=== PATIENT | female | born 1945 | race Two or more races ===

== ENCOUNTER 2024-05-20 06:47 | Emergency (ER) | payer OTHER, SELFPAY ==
[2024-05-20 06:58] VITALS: BP 136/54; PULSE 70; RESP 18; TEMP 36.6; O2SAT 97; BMI 23.7
--- NOTE | 2024-05-20 07:19 | ED_ITS ---
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 Today she is here asking for blood work to see if she has infection though no fevers, swelling. She just had normal panorex at dentist yesterday. I explained blood work would not be helpful but will provide gabapentin and she should call her oral surgeon. She is to continue her cephalexin. MD Complaint: tooth pain Onset (ago): year(s) (4 attack started 5 days ago ) Duration: constant Severity: severe Relieving factors: nothing Exacerbating factors: chewing, cold, heat, drinking fluids and swallowing Context: trauma (mechanism) Associated symptoms: other (has no outward signs) Treatment prior to arrival: other (oxcarbezapine) Related Data Previous Rx's ?Medication ?Instructions ?Recorded gabapentin 100 mg capsule 100 mg PO TID #90 caps 05/20/24 Allergies Allergy/AdvReac Type Severity Reaction Status Date / Time No Known Allergies Allergy Verified 05/20/24 07:00 Review of Systems Review of Systems: Constitutional : No Fever, No Chills ENT/Mouth : No swallowing difficulty, no change in voice, positive dental pain, positive jaw pain, no facial swelling Eyes: No Eye Pain, No Swelling Cardiovascular : No Chest Pain, No SOB Respiratory : No Cough, No Sputum Gastrointestinal : No Nausea, No Vomiting, No Diarrhea Genitourinary : No Dysuria Musculoskeletal : No Myalgias Skin : No rash Neuro : No Weakness, No Numbness, No Headache PMFSH Past Medical History Attestation statement: The following information was validated with the patient. Source: old records reviewed Medical History Asthma UTI (urinary tract infection) Trigeminal neuralgia DVT (deep venous thrombosis) Social History Social History Patient Tobacco Use Status: Never used Tobacco Advance Directives: Yes Advance Directives Information Provided: Yes Advance Directives on File: No Physical Exam 2 Vital Signs: Vital Signs: Last Vital Signs Temp 97.9 F 05/20/24 06:58 Pulse 70 05/20/24 06:58 Resp 18 05/20/24 06:58 BP 136/54 L 05/20/24 06:58 Pulse Ox 97 05/20/24 06:58 O2 Del Method Room Air 05/20/24 06:58 BMI result Body Mass Index 23.7 Appearance: Alert. Oriented X3. No acute distress. Eyes: Pupils equal, round and reactive to light. ENT: Pharynx normal. no trismus did have pain but able to open then no issues was short sharp episode of pain, no signs of swelling, gum swelling, hyperemia, thinning of gum, mild ttp along R jaw no outward signs of swelling or trauma, no lymphadenopathy Neck: Normal inspection. Neck supple. no submandibular or sublingual swelling CVS: Pulses normal. Respiratory: No respiratory distress. . Abdomen: atraumatic Skin: Skin warm and dry. Normal skin color. Extremities: trace edema both ankles Neuro: Oriented X 3. No motor deficit. No sensory deficit. Medical Decision Making Medical Decision Making MDM Narrative: 79 yo female with PMH of DVT on xarelto, asthma, UTI currently on cephalexin, anxiety, chronic nerve pain on oxcarbazepine here with chronic R sided pain but no associated signs of infection or phyisical signs of infection at this time will start on gapapentin and refer her back to her dentist. She just had imaging of her bone yesterday without findings of infection. No signs of deeper space infection Differential Diagnosis Differential Diagnoses: The differential diagnosis associated with the presentation includes jaw pain, trigeminal neuralgia External Record Review External record reviewed: Outpatient record Prescription Management I considered prescription management with: Other Discharge Plan Discharge Clinical Impression: Right trigeminal neuralgia Patient Disposition: Home, Self-Care Instructions: Trigeminal Neuralgia (ED) Additional Instructions: call dentist today follow up for further imaging return for worsening pain or concerns such as fevers finish the antibiotic medication may make you sleepy Prescriptions: New gabapentin 100 mg capsule 100 mg PO TID Qty: 90 0RF Print Language: Bulgarian
[2024-05-20 07:56] VITALS: BP 130/82; PULSE 70; RESP 16; TEMP 36.6; O2SAT 96
== END 2024-05-20 07:58 | disposition home or self-care (01) ==
PROVIDERS: Absent Provider Internal Medicine; Emergency Provider Emergency Medicine
DX: G50.0 Trigeminal neuralgia (principal)
CPT/HCPCS: 99282; 99283

== ENCOUNTER 2025-04-23 07:03 | Emergency (ER) | payer OTHER, SELFPAY ==
--- NOTE | ~2025-04-23 | XR_ITS ---
CLINICAL HISTORY: bilateral pain radiating to legs 5 view, pelvis and bilateral hips Comparison: None provided Findings: The bony pelvis is intact. There are moderate degenerative changes at both hips. No fracture or malalignment. Impression: Moderate degenerative change at both hips. No fracture or malalignment. This document has been electronically signed by: Jacek Cannon MD on 04/23/2025 10:02:32
--- NOTE | ~2025-04-23 | US_ITS ---
CLINICAL HISTORY: bilat LE pain swelling L>R, hx dvt Bilateral lower extremity duplex venous Doppler Comparison: None Technique: Grayscale/Color/Duplex Doppler sonographic evaluation of the deep venous system within both lower extremities. Findings: Right lower extremity Common femoral vein: Patent CFV/GSV junction: Patent Femoral vein: Patent Popliteal vein: Patent Infrapopliteal veins: Patent where seen Soft tissue: No focal abnormality Left lower extremity Common femoral vein: Patent CFV/GSV junction: Patent Femoral vein: Patent Popliteal vein: Patent Infrapopliteal veins: Patent where seen Soft tissues: Popliteal cyst measuring 4.7 x 2.3 x 2.5 cm Impression: 1. Negative for bilateral lower extremity DVT 2. Left webb's cyst This document has been electronically signed by: Justin Ziegler MD on 04/23/2025 11:58:23
[2025-04-23 07:46] VITALS: BP 163/73; PULSE 84; RESP 16; TEMP 36.7; O2SAT 97; BMI 25.9
[2025-04-23 07:49] VITALS: BP 163/74; PULSE 83; RESP 16; O2SAT 97
--- OUTSIDE RECORDS SUMMARY | 2025-04-23 07:54 | XMS_ITS | Clinical Summary ---
Author Organization [facility] Address [address] [place] [address] Phone Care Team Providers Care Inside Sales Professional Name Role Phone Shay Tam MD Primary Care Provider [phone] Allergies Active Allergy Reactions Criticality Noted Date Comments Amoxicillin-Pot Clavulanate GI intolerance 12/04 Lactose 12/28/2024 Sulfadiazine Nausea And Vomiting 12/28/2024 Sulfamethoxazole-Trimethoprim Unknown 2024 Medications albuterol HFA (PROAIR HFA ; PROVENTIL HFA ; VENTOLIN HFA) 90 mcg/actuation inhaler Inhale 1 puff by mouth every 6 (six) hours if needed for wheezing. Active atorvastatin (LIPITOR) 80 mg tablet Take 1 tablet (80 mg total) by mouth 1 (one) time each day. Active carBAMazepine (TEGretol) 200 mg tablet Take 1 tablet (200 mg total) by mouth 2 (two) times a day. FOR PINCHED NERVE 5 Active cephalexin (KEFLEX) 250 mg capsule Take 1 capsule (250 mg total) by mouth 1 (one) time each day. 5 Active cetirizine (ZyrTEC) 10 mg tablet Take 1 tablet (10 mg total) by mouth 1 (one) time each day if needed for allergies. Active clonazePAM (KlonoPIN) 1 mg tablet Take 1 tablet (1 mg total) by mouth 2 (two) times a day if needed for anxiety. Active docusate sodium (COLACE) 100 mg capsule Take 1 capsule (100 mg total) by mouth 2 (two) times a day if needed for constipation. 5 Active estradioL (ESTRACE) 0.01 % (0.1 mg/gram) vaginal cream Insert 1 g into the vagina 2 (two) times a week. AT BEDTIME 5 Active furosemide (LASIX) 20 mg tablet Take 1 tablet (20 mg total) by mouth 1 (one) time each day. Active gabapentin (NEURONTIN) 400 mg capsule Take 1 capsule (400 mg total) by mouth 3 (three) times a day if needed. Active glipiZIDE (GLUCOTROL) 5 mg tablet Take 0.5-1 tablets (2.5-5 mg total) by mouth 1 (one) time each day if needed (HYPOGLYCEMICA ). Active hydrOXYzine HCL (ATARAX) 25 mg tablet Take 1 tablet (25 mg total) by mouth 3 (three) times a day if needed for itching. Active lisinopriL (PRINIVIL,ZESTR IL) 5 mg tablet Take 1 tablet (5 mg total) by mouth 1 (one) time each day. Active meclizine (ANTIVERT) 12.5 mg tablet Take 1 tablet (12.5 mg total) by mouth 2 (two) times a day if needed for dizziness. Active mirtazapine (REMERON) 30 mg tablet Take 1 tablet (30 mg total) by mouth at bedtime. Active nitroglycerin (NITROSTAT) 0.[address] 1 tablet (0.4 mg total) under the tongue every 5 (five) minutes if needed for chest pain. Active oxyCODONE-aceta minophen (PERCOCET) 5-325 mg per tablet Take 1 tablet by mouth 2 (two) times a day if needed for severe pain. Active pantoprazole (PROTONIX) 40 mg EC tablet Take 1 tablet (40 mg total) by mouth 1 (one) time each day before breakfast. 5 Active Xarelto 20 mg tablet Take 1 tablet (20 mg total) by mouth 1 (one) time each day with dinner. Active senna 8.6 mg tablet Take 2 tablets (17.2 mg total) by mouth 1 (one) time each day if needed for constipation. 5 Active zolpidem (AMBIEN) 5 mg tablet Take 1 tablet (5 mg total) by mouth at bedtime as needed for sleep. at bedtime for sleep Active UNABLE TO FIND Med Name: NEBULIZER SOLUTION Active Active Problems Problem Noted Date Diagnosed Date Dizziness, nonspecific 12/29/2024 Encounters Date Type Department Care Team Description 03/24/2025 Lab Requisition [facility] - Main Lab [address] [facility] [place] [address] Lisa Guzman NP Frequency of micturition 01/27/2025 4:31 PM EDT - 01/27/2025 8:44 PM EDT Emergency [facility] Emergency [address] [place] [address] Discharge Disposition: Left Against Medical Advice from Last 3 Months Medical History Medical History Date Comments Clotting disorder (CMS/HCC V24) Arthritis Asthma Anxiety Depression Kidney problem Social History Tobacco Use Types Packs/Day Years Used Date Smoking Tobacco: Never Smokeless Tobacco: Never Tobacco Cessation:Counseling Given: Not Answered Comments Unknown Sex and Gender Information Value Date Recorded Sex Assigned at Female 12/26/2024 10:51 AM EDT Legal Sex Female 8:19 AM EST Gender Identity Female 12/26/2024 10:51 AM EDT Sexual Orientation Straight 12/26/2024 10 :51 AM EDT Obstetrics History Last Filed Vital Signs Vital Sign Reading Time Taken Comments Blood Pressure 123/64 01/27/2025 5:10 PM EDT Pulse 92 01/27/2025 5:10 PM EDT Temperature 36.6 C (97.9 F) 01/27/2025 5:10 PM EDT Respiratory Rate 18 01/27/2025 5:10 PM EDT Oxygen Saturation 98% 01/27/2025 5:1 0 PM EDT Inhaled Oxygen Concentration - - Weight 66.2 kg (146 lb) 01/27/2025 5:10 PM EDT pt states this is what she weighed at MD office Height 157.5 cm (5' 2 ) 01/27/2025 5:10 PM EDT Body Mass Index 26.7 01/27/2025 5:10 PM EDT Plan of Treatment Health Maintenance Due Date Last Done Comments Diabetes: Annual Foot Exam 1955 Diabetes: Annual Retina Eye Exam 1955 DTaP,Tdap,and Td Vaccines (1 - Tdap) 01/26/1964 Cholesterol Screening (Lipid Panel) 09/07/2022 Falls Risk Assessment 09/07/2022 Medicare Annual Wellness Visit 09/07/2022 Osteoporosis Screening (Bone Density Screening) 09/07/2022 Social Influencers of Health Screening 09/07/2022 Diabetes: Annual Urine Albumin-Creatinine Ratio (uACR) 10/02/2024 Diabetes: Blood Sugar Control Test (HGBA1C) 10/02/2024 Depression Screening 10/05/2024 COVID-19 Vaccine ( season) 2025 07/25/2024, 01/20/2023, 02/06/2022, Additional history exists Influenza Vaccine (#1) 2025 , 08/18/2023, 07/16/2022, Additional history exists Diabetes: Annual GFR (Glomerular Filtration Rate) 01/27/2026 01/27/2025, 12/28/2024, 12/26/2024, Additional history exists Hypertension/CHF/CAD Annual BMP Blood Test 01/27/2026 01/27/2025, 12/28/2024, 12/26/2024, Additional history exists Zoster Vaccines Completed 05/01/2023, 07/16/2022 Pneumococcal Vaccine: 50+ Years Completed 06/08/2023, 05/07/2011 RSV Immunization Adult Patients Completed 10/25/2024 HIB Vaccines Aged Out No longer eligi ble based on patient's age to complete this topic HPV Vaccines Aged Out No longer eligi ble based on patient's age to complete this topic Hepatitis A Vaccines Aged Out No long er eligible based on patient's age to complete this topic Hepatitis B Vaccines Aged Out No long er eligible based on patient's age to complete this topic IPV Vaccines Aged Out No longer eligi ble based on patient's age to complete this topic MMR Vaccines Aged Out No longer eligi ble based on patient's age to complete this topic Meningococcal ACWY Vaccine Aged Out N o longer eligible based on patient's age to complete this topic Meningococcal B Vaccine Aged Out No l onger eligible based on patient's age to complete this topic RSV Immunization Patients Under 20 months Aged Out No longer eligible based on patient's age to complete this topic Varicella Vaccines Aged Out No longer eligible based on patient's age to complete this topic Procedures Procedure Name Priority Date/Time Associated Diagnosis Comments CULTURE URINE Routine 03/24/2025 12:00 AM EDT Frequency of micturition CBC WITH AUTO DIFFERENTIAL STAT 01/27/2025 5:22 PM EDT COMPREHENSIVE METABOLIC PANEL STAT 01/27/2025 5:22 PM EDT CBC AND DIFFERENTIAL STAT 01/27/2025 5:22 PM EDT BRISENO URINE CULTURE TUBE STAT 01/27/2025 5:21 PM EDT URINALYSIS WITH REFLEX MICROSCOPIC AND CULTURE STAT 01/27/2025 5:21 PM EDT URINALYSIS WITH REFLEX MICROSCOPIC AND CULTURE STAT 01/27/2025 5:21 PM EDT CULTURE URINE STAT 01/27/2025 5:21 PM EDT from Last 3 Months Results * (ABNORMAL) Culture urine (03/24/2025 12:00 AM EDT) Only the most recent of2 resultswithin the time period is included. Culture, Urine >100,000 CFU/mL Klebsiella pneumoniae ssp pneumoniae(A) 03/28/2025 8:11 AM EDT [facility] Comment: This is an edited result. Previous organism was Gram negative bacilli on 03/26/2025 at 0839 EDT. This is an edited result. Previous organism was Klebsiella pneumoniae on 03/28/2025 at 0808 EDT. Urine Urine specimen obtained by clean catch procedure / Unknown 03/24/2025 03/24/2025 1:27 PM EDT Narrative Organism Antibiotic Method Susceptibility Klebsiella pneumoniae ssp pneumoniae Amikacin DISK DIFFUSION Susceptible Klebsiella pneumoniae ssp pneumoniae Amoxicillin/Clavulanate DISK DIFFUSION Intermediate Klebsiella pneumoniae ssp pneumoniae Ampicillin/Sulbactam DISK DIFFUSION Resistant Klebsiella pneumoniae ssp pneumoniae Cefazolin DISK DIFFUSION Resistant Klebsiella pneumoniae ssp pneumoniae Cefepime DISK DIFFUSION Susceptible Klebsiella pneumoniae ssp pneumoniae Cefoxitin DISK DIFFUSION Resistant Klebsiella pneumoniae ssp pneumoniae Ceftazidime DISK DIFFUSION Susceptible Klebsiella pneumoniae ssp pneumoniae Ceftriaxone DISK DIFFUSION Susceptible Klebsiella pneumoniae ssp pneumoniae Ciprofloxacin DISK DIFFUSION Resistant Klebsiella pneumoniae ssp pneumoniae Gentamicin DISK DIFFUSION Susceptible Klebsiella pneumoniae ssp pneumoniae Levofloxacin DISK DIFFUSION Resistant Klebsiella pneumoniae ssp pneumoniae Meropenem DISK DIFFUSION Intermediate Klebsiella pneumoniae ssp pneumoniae Nitrofurantoin DISK DIFFUSION Resistant Klebsiella pneumoniae ssp pneumoniae Piperacillin/Tazobactam DISK DIFFUSION Resistant Klebsiella pneumoniae ssp pneumoniae Trimethoprim/Sulfamethoxazole DISK DIFFUSION Resistant us Lisa Guzman [employer] LAB MICROBIOLOGY - GENERA L ORDERABLES Final Result [facility] [address] [place] [address], * (ABNORMAL) CBC auto differential (01/27/2025 5:22 PM EDT) WBC 7.0 4.8 - 10.8 K/mcL LAB HEMETOLOGY METHOD 01/27/2025 7:31 PM EDT [facility] RBC 4.00 3.80 - 4.80 M/mcL LAB HEMETOLOGY METHOD 01/27/2025 7:31 PM EDT [facility] Hemoglobin 11.9 11.5 - 16.0 g/dL LAB HEMETOLOGY METHOD 01/27/2025 7:31 PM EDT [facility] Hematocrit 37.5 35.0 - 47.0 % LAB HEMETOLOGY METHOD 01/27/2025 7:31 PM EDT [facility] MCV 94.5 79.0 - 98.0 FL LAB HEMETOLOGY METHOD 01/27/2025 7:31 PM EDT [facility] MCH 30.0 27.0 - 32.0 pcg LAB HEMETOLOGY METHOD 01/27/2025 7:31 PM EDT [facility] MCHC 31.7(L) 32.0 - 37.0 g/dL LAB HEMETOLOGY METHOD 01/27/2025 7:31 PM EDT [facility] RDW 14.8 11.0 - 15.0 % LAB HEMETOLOGY METHOD 01/27/2025 7:31 PM [facility] Platelets 259 130 - 400 K/mcL LAB HEMETOLOGY METHOD 01/27/2025 7:31 PM [facility] MPV 9.6 7.0 - 11.0 FL LAB HEMETOLOGY METHOD 01/27/2025 7:31 PM [facility] NRBC 0.0 <1.0 % LAB HEMETOLOGY METHOD 01/27/2025 7:31 PM [facility] NRBC Absolute 0.00 <0.10 K/mcL LAB HEMETOLOGY METHOD 01/27/2025 7:31 PM [facility] Neutrophils Relative 50.6 % LAB HEMETOLOGY METHOD 01/27/2025 7:31 PM [facility] Lymphocytes Relative 33.5 % LAB HEMETOLOGY METHOD 01/27/2025 7:31 PM [facility] Monocytes Relative 7.8 % LAB HEMETOLOGY METHOD 01/27/2025 7:31 PM [facility] Eosinophils Relative 6.8 % LAB HEMETOLOGY METHOD 01/27/2025 7:31 PM [facility] Basophils Relative 0.9 % LAB HEMETOLOGY METHOD 01/27/2025 7:31 PM [facility] Immature Granulocytes Relative 0.4 % LAB HEMETOLOGY METHOD 01/27/2025 7:31 PM [facility] Neutrophils Absolute 3.55 1.50 - 7.00 K/mcL LAB HEMETOLOGY METHOD 01/27/2025 7:31 PM [facility] Lymphocytes Absolute 2.35 1.00 - 5.00 K/mcL LAB HEMETOLOGY METHOD 01/27/2025 7:31 PM [facility] Monocytes Absolute 0.55 0.20 - 1.00 K/mcL LAB HEMETOLOGY METHOD 01/27/2025 7:31 PM EDT [facility] Eosinophils Absolute 0.48 0.00 - 0.50 K/mcL LAB HEMETOLOGY METHOD 01/27/2025 7:31 PM EDT [facility] Basophils Absolute 0.06 0.00 - 0.20 K/[facility] LAB HEMETOLOGY METHOD 01/27/2025 7:31 PM EDT [facility] Immature Granulocytes Absolute 0.03 0.00 - 0.03 K/mcL LAB HEMETOLOGY METHOD 01/27/2025 7:31 PM EDT [facility] Blood Venous blood specimen / Unknown Venipuncture / Unknown 01/27/2025 5:22 PM EDT 01/27/2025 7:30 PM EDT [facility] Albert Pena DO LAB BLOOD ORDERABLES Savanna l Result [facility] [address] [place] [address], * (ABNORMAL) Comprehensive metabolic panel (01/27/2025 5:22 PM EDT) Sodium 140 133 - 145 mmol/L LAB CHEMISTRY METHOD 01/27/2025 6:24 PM [facility] Potassium 4.7 3.5 - 5.5 mmol/L LAB CHEMISTRY METHOD 01/27/2025 6:24 PM [facility] Chloride 104 96 - 110 mmol/L LAB CHEMISTRY METHOD 01/27/2025 6:24 PM [facility] CO2 31 21 - 32 mmol/L LAB CHEMISTRY METHOD 01/27/2025 6:24 PM T [facility] Anion Gap 5 3 - 11 LAB [facility]STR[facility] Glucose 145(H) 70 - 100 mg/dL LAB CHEMISTRY METHOD 01/27/2025 6:24 PM [facility] BUN 17 5 - 25 mg/dL LAB CHEMISTRY METHOD 01/27/2025 6:24 PM [facility] Creatinine 0.92 0.50 - 1.10 mg/dL LAB CHEMISTRY METHOD 01/27/2025 6:24 PM [facility] eGFR 63 >=60 mL/min/1. 73m2 LAB CHEMISTRY METHOD 01/27/2025 6:24 PM [facility] Comment:Calculation based on the Chronic Kidney Disease Epidemiology Collaboration (CKD-EPI) equation refit without adjustment for race. BUN/Creatinine Ratio 18.5 LAB CHEMISTRY METHOD 01/27/2025 6:24 PM [facility] Calcium 9.3 8.5 - 10.5 mg/dL LAB CHEMISTRY METHOD 01/27/2025 6:24 PM [facility] AST (SGOT) 24 10 - 42 unit/L LAB CHEMISTRY METHOD 01/27/2025 6:24 PM [facility] ALT (SGPT) 24 10 - 60 unit/L LAB CHEMISTRY METHOD 01/27/2025 6:24 PM [facility] Alkaline Phosphatase 178(H) 42 - 121 unit/L LAB CHEMISTRY METHOD 01/27/2025 6:24 PM [facility] Total Protein 6.9 6.0 - 8.0 g/dL LAB CHEMISTRY METHOD 01/27/2025 6:24 PM [facility] Albumin 3.3 3.2 - 5.0 g/dL LAB CHEMISTRY METHOD 01/27/2025 6:24 PM [facility] Total Bilirubin 0.2 0.0 - 1.4 mg/dL LAB CHEMISTRY METHOD 01/27/2025 6:24 PM [facility] Blood Venous blood specimen / Unknown Venipuncture / Unknown 01/27/2025 5:22 PM EDT 01/27/2025 5:38 PM EDT us Noemí Pena DO LAB BLOOD ORDERABLES Savanna l Result [facility] [address] [place] [address], [place] [phone] * (ABNORMAL) Urinalysis with reflex microscopic and culture (01/27/2025 5:21 PM EDT) Specific [place] Urine 1.018 1.003 - 1.030 LAB URINALYSIS - AUTOMATED METHOD 01/27/2025 5:45 PM EDT [facility] pH, Urine 6.0 5.0 - 8.0 pH LAB URINALYSIS - AUTOMATED METHOD 01/27/2025 5:45 PM [facility] Leukocytes, Urine Moderate(A) Negative LAB URINALYSIS - AUTOMATED METHOD 01/27/2025 5:45 PM T [facility] Nitrite, Urine Negative Negative LAB URINALYSIS - AUTOMATED METHOD 01/27/2025 5:45 PM [facility] Protein, Urine Negative <=Trace mg/dL LAB URINALYSIS - AUTOMATED METHOD 01/27/2025 5:45 PM [facility] Glucose, Urine Negative Negative mg/dL LAB URINALYSIS - AUTOMATED METHOD 01/27/2025 5:45 PM T [facility] Ketones, Urine Trace(A) Negative mg/dL LAB URINALYSIS - AUTOMATED METHOD 01/27/2025 5:45 PM [facility] Urobilinogen , Urine 0.2 0.2 - 1.0 mg/dL LAB URINALYSIS - AUTOMATED METHOD 01/27/2025 5:45 PM [facility] Bilirubin, Urine Negative Negative LAB URINALYSIS - AUTOMATED METHOD 01/27/2025 5:45 PM EDT [facility] Blood, Urine Negative Negative LAB URINALYSIS - AUTOMATED METHOD 01/27/2025 5:45 PM EDT [facility] RBC, Urine 5.9(H) 0 - 4 /HPF LAB URINALYSIS - AUTOMATED METHOD 01/27/2025 5:45 PM EDT [facility] WBC, Urine 21.2(H) 0 - 4 /HPF LAB URINALYSIS - AUTOMATED METHOD 01/27/2025 5:45 PM EDT [facility] Squamous Epithelial, Urine 46 0 - 60 /LPF LAB URINALYSIS - AUTOMATED METHOD 01/27/2025 5:45 PM EDT [facility] Bacteria, Urine Negative Negative /HPF LAB URINALYSIS - AUTOMATED METHOD 01/27/2025 5:45 PM EDT [facility] Hyaline Casts, Urine 4.0(H) 0 - 3 /LPF LAB URINALYSIS - AUTOMATED METHOD 01/27/2025 5:45 PM T [facility] Urine Urine specimen obtained by clean catch procedure / Unknown Non-blood Collection / Unknown 01/27/2025 5:21 PM EDT 01/27/2025 5:38 PM EDT us Noemí Pena DO LAB URINE ORDERABLES Savanna l Result [facility] [address] [place] [address], * Briseno urine culture tube (01/27/2025 5:21 PM EDT) Extra Tube Hold for add-ons. 01/27/2025 7:01 PM EDT [facility] Comment:Auto resulted. 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 12/28/2024 CRE 03/24/2025 03/24/2025 MDRO (other) 03/24/2025 03/24/2025 Insurance [employer] Member Subscriber Plan / Payer (Ef fective 2010-Present) Name:Jhonathan Goldberg Relation to Subscriber:Self Name:Jhonathan Arnold Payer ID:[id number] Group ID:[id number] Type:Not on file Address: [place] [address] [id number] Advance Directives * Full Code - Default (Latest Code Status on File) Date Activated Date Inactivated Comments 12/29/2024 1:12 PM 12/29/2024 6:35 PM This is orde r is used when code status has not been discussed with the patient, or code status is otherwise unknown/unconfirmed To update the patient's code status, place a code status order. Do not modify or discontinue any currently active code status orders. Care Teams Inside Sales Professional Relationship Specialty Start Date End Date Shay Tam MD [address] [place] [phone] PCP - General 02/17/02
--- NOTE | 2025-04-23 08:04 | PC.NURSE ---
Addendum entered by Kellie Shipley RN 04/23/25 08:23: Patient is a 80 yo female with PMH of DVT on xarelto, asthma, UTI currently on cephalexin, anxiety, chronic nerve pain on oxcarbazepine for 4 years presents with bilat LE swelling and pain radiating to her body for the past month. Alert and oriented, primarily sami speaking. Lungs clear bilat. Respirations even and non-labored. Abdomen soft, distended, non-tender with positive bowel sounds. Positive pedal pulses with LE edema and some trace swelling, macular rash noted. Original Note: Medical History Asthma UTI (urinary tract infection) Trigeminal neuralgia DVT (deep venous thrombosis
[2025-04-23 08:17] LABS: MANUAL DIFF FLAG NO
[2025-04-23 08:19] LABS: Hematocrit 35.9 % (37.0-47.0); Hemoglobin 11.4 g/dl (12.0-16.0); Imm Gran Abs Auto 0.02 X10*3/uL (0.00-0.03); Imm Gran Pct Auto 0.4 % (0.0-0.4); Lymphocytes Absolute Auto 1.8 X10*3/uL (1.2-4.9); Mean Corpuscular HGB Conc 31.8 g/dl (31.0-35.0); Mean Corpuscular Hemoglobin 29.4 pg (27.0-33.0); Mean Corpuscular Volume 92.5 fL (80.0-98.0); NRBC Abs Auto 0.000 X10*3/uL (0.0-0.012); NRBC Pct Auto 0.0 /100WBC (0.0-0.2); Platelet Count 255 X10*3/uL (160-400); Red Blood Count 3.88 X10*6/uL (4.20-5.50); White Blood Count 5.2 X10*3/uL (4.8-10.8)
[2025-04-23 08:35] LABS: Alanine Aminotransferase 12 U/L (0-31); Albumin Level 3.8 g/dL (3.5-5.0); Alkaline Phosphatase 138 U/L (39-117); Anion Gap 9 (12-20); Aspartate Amino Transferase 24 U/L (5-31); Blood Urea Nitrogen 10 mg/dL (9-16); Calcium 8.8 mg/dL (8.4-10.2); Carbon Dioxide 28 mmol/L (22-29); Chloride 113 mmol/L (96-108); Creatinine Clr Calc Pharmacy 66.1; Estimated Glomerular Filt Rate > 60; Potassium 4.7 mmol/L (3.3-5.1); Sodium 145 mmol/L (135-145); Total Protein 6.6 g/dL (6.5-8.0)
[2025-04-23 08:45] LABS: B Type Natriuretic Peptide 83 pg/mL (<100)
[2025-04-23 09:13] LABS: Appearance Urine Clear; Glucose Urine UA Negative (Negative); PH 6.5 (5.0-9.0); Specific Gravity - Urine 1.015 (1.005-1.025); UMIC TRIGGER UACC YES
[2025-04-23 09:23] LABS: UACC Culture Trigger YES
--- NOTE | 2025-04-23 09:40 | ED.GENADULT ---
HPI - General Adult General Chief complaint: General Medical Stated complaint: Body Aches Leg Swelling Time Seen by Provider: 04/23/25 08:04 Source: patient Mode of arrival: ambulatory Limitations: language barrier (Grenadian-speaking cardiac cath technician utilized) History of Present Illness ED Provider: Kylah Huffman NP HPI narrative: Patient is an 80-year-old female who presents emergency department with her STOCK DRIER TENDER for evaluation. She reports that for the past 4 days she has been experiencing pain and swelling to the bilateral lower extremities. She reports the pain is strongest at her feet but it is felt of the entirety of her legs into the lower back and involving both hips. Left feels worse than right. She he has not had this pain in the past. She has a slight rash to the bilateral lower extremities which she has followed with her primary care provider for, has tried various [id number] anti-itch creams including hydrocortisone without improvement. She denies the rash to be any worse than usual. Denies any precipitating falls or injuries. Denies urinary frequency/urgency/hesitancy, dysuria, or hematuria. Denies fevers or chills. No abdominal pain nausea or vomiting. No numbness or tingling of the perineum or bilateral lower extremities. No bladder or bowel dysfunction. She is prescribed oxycodone for her trigeminal neuralgia she states that this does help to improve the pain in her lower extremities somewhat for a few hours but then comes back region. It is exacerbated with walking and movement of the lower extremities. Denies any chest pain or shortness of breath. Related Data Previous Rx's ?Medication ?Instructions ?Recorded gabapentin 100 mg capsule 100 mg PO TID #90 caps 05/20/24 cefuroxime axetil 250 mg tablet 250 mg PO BID #14 tabs 04/23/25 triamcinolone acetonide 0.025 % 1 appl topical BID #15 grams 04/23/25 topical ointment Allergies Allergy/AdvReac Type Severity Reaction Status Date / Time No Known Allergies Allergy Verified 04/23/25 07:48 Review of Systems Review of Systems: Yes all other systems are reviewed and are negative [facility] Past Medical History Attestation statement: The following information was validated with the patient. Source: old records reviewed Medical History Asthma UTI (urinary tract infection) Trigeminal neuralgia DVT (deep venous thrombosis) Social History Social History Patient Tobacco Use Status: Never used Tobacco Smoked in Last 30 Days: No Use of substances other than those prescribed or required for medical reasons: No Advance Directives: No Advance Directives Information Provided: No Physical Exam ED Exam Exam: Appearance: Alert.?Oriented to person, place and time. No acute distress.?Normal affect.? CVS: Heart sounds normal. Normal heart rate and rhythm.? Pulses normal.?? Respiratory: No respiratory distress.? Lung sounds clear to auscultation bilaterally?? Abdomen: Soft and non-tender. Normoactive bowel sounds. No CVA tenderness. Back: No midline lumbar spine tenderness, step-offs, deformities. No rashes or lesions. Mild to moderate lumbar paraspinal muscle tenderness upon palpation. Positive straight leg test bilaterally. Skin: Skin warm and dry.? Normal skin color Extremities: 1+ pitting bilateral lower extremity edema.? No calf ttp? Neuro: Moves all extremities spontaneously. Sensation intact bilaterally. No focal neuro deficits. Ambulates with antalgic gait. Vital Signs: Vital Signs - 24 hr 04/23/25 07:46 04/23/25 07:49 04/23/25 10:20 Temperature 98.1 F 97.9 F Pulse Rate 84 83 73 Respiratory Rate 16 16 15 Blood Pressure 163/73 H 163/74 H 149/64 H Pulse Oximetry 97 97 98 Oxygen Delivery Method Nasal Cannula Room Air Room Air 04/23/25 11:59 Temperature Pulse Rate 74 Respiratory Rate 16 Blood Pressure 180/80 H Pulse Oximetry 98 Oxygen Delivery Method Room Air BMI result Body Mass Index 25.9 Course Reevaluation(s) Reevaluation #1: CBC is without leukocytosis, has a mild normocytic anemia that does not meet transfusion criteria, no thrombocytopenia. No significant electrolyte derangement. No ARYAN. LFTs unremarkable. CK is normal. BNP within normal range. Urinalysis with 2+ leukocyte esterase, urine WBC 20 1-15 4+ urine bacteria concerning for acute urinary tract infection which may be attributing to the back pain that she is experiencing. She does not have overt CVA tenderness, abdominal pain nausea vomiting fevers or chills to suggest acute pyelonephritis. XR of the bilateral hips and pelvis reveals degenerative changes but no evidence of fraction or dislocation. Venous duplex ultrasound is without evidence of DVT. She expresses concern about chronic dermatitis to the bilateral lower extremities, unrelieved with hydrocortisone, we will send a prescription for triamcinolone ointment to trial alternatively, does not appear cellulitic in nature. These findings were discussed with the patient and her STOCK DRIER TENDER at bedside, treated with a course of antibiotics, recommend continued management with her chronic pain medications at home, outpatient follow-up with her primary care provider and/or course of physical therapy. All questions answered. Given strict return precautions. Stable for discharge Medical Decision Making Medical Decision Making [facility] Narrative: Patient is an 80-year-old female with past medical history of asthma, trigeminal neuralgia, DVT on Xarelto, UTI who presents emergency department for evaluation of bilateral lower extremity pain as per HPI with 1+ pitting pedal edema, there is an erythematous macular rash to the bilateral lower extremities which by her account is chronic and no worse than usual. No saddle paresthesias or bladder bowel dysfunction, DTRs are intact, she is ambulatory with a mildly antalgic gait, do not suspect cauda equina syndrome. Based on history and physical examination I suspect that pain may be radicular in nature given her attributing lumbar paraspinal muscle pain and tenderness on examination. Bilateral lower extremities have a erythematous macular rash is slightly warm to touch, by her account this is not significantly worse than baseline however the pain is new over the past 4 days. She states she has been compliant with her Xarelto, lower suspicion for acute bilateral DVT, reviewed with my attending, will obtain venous duplex US. XR of the bilateral hips and pelvis to be obtained. She is already prescribed oxycodone as well as gabapentin. She states that she typically does not take the gabapentin, the oxycodone does help to alleviate the pain that what is prescribed for her trigeminal neuralgia, but the pain ultimately returns. She may benefit from a course of physical therapy as well. Differential Diagnosis Differential Diagnoses: The differential diagnosis associated with the presentation includes (See narrative above) Admission/Observation Consideration of admission/observation: Escalation of care including admission/observation considered Lab Data [facility] Lab Attestation statement: I reviewed the patient's lab results. (See narrative above) 04/23/25 08:12 04/23/25 08:12 Labs: Lab Results 07/20/25 07/20/25 07/20/25 Range/Units 08:12 08:20 09:05 WBC 5.2 (4.8-10.8) X10*3/uL RBC 3.88 L (4.20-5.50) X10*6/uL Hgb 11.4 L (12.0-16.0) g/dl Hct 35.9 L (37.0-47.0) % MCV 92.5 (80.0-98.0) fL MCH 29.4 (27.0-33.0) pg MCHC 31.8 (31.0-35.0) g/dl RDW 14.6 (11.0-16.0) % Plt Count 255 (160-400) X10*3/uL MPV 9.3 L (9.4-12.3) fL Immature Gran % (Auto) 0.4 (0.0-0.4) % Neut % (Auto) 45.4 (45-73) % Lymph % (Auto) 34.7 (20-40) % [place] % (Auto) 8.2 (2-11) % Eos % (Auto) 10.3 H (0-4) % Baso % (Auto) 1.0 (0-2) % Lymph # (Auto) 1.8 (1.2-4.9) X10*3/uL [place] # (Auto) 0.4 (0.1-1.2) X10*3/uL Eos # (Auto) 0.5 H (0.0-0.4) X10*3/uL Baso # (Auto) 0.1 (0.0-0.2) X10*3/uL Abs Immat Gran (auto) 0.02 (0.00-0.03) X10*3/uL Absolute Neuts (auto) 2.4 (2.0-8.3) x10*3/uL Absolute Nucleated RBC 0.000 (0.0-0.012) X10*3/uL Nucleated RBC % (auto) 0.0 (0.0-0.2) /100WBC Sodium 145 (135-145) mmol/L Potassium 4.7 (3.3-5.1) mmol/L Chloride 113 H (96-108) mmol/L Carbon Dioxide 28 (22-29) mmol/L Anion Gap 9 L (12-20) BUN 10 (9-16) mg/dL Creatinine 0.62 (0.5-1.4) mg/dL Estim Creat Clear Calc 66.1 Estimated GFR > 60 POC Glucose (60-115) mg/dL Random Glucose 142 H (60-115) mg/dL Calcium 8.8 (8.4-10.2) mg/dL Total Bilirubin 0.3 (0.0-1.0) mg/dL AST 24 (5-31) U/L ALT 12 (0-31) U/L Alkaline Phosphatase 138 H (39-117) U/L Total Creatine Kinase 41 (26-140) U/L B-Natriuretic Peptide 83 (<100) pg/mL Total Protein 6.6 (6.5-8.0) g/dL Albumin 3.8 (3.5-5.0) g/dL Urine Color Yellow Urine Appearance Clear Urine pH 6.5 (5.0-9.0) Ur Specific [place] 1.015 (1.005-1.025) Urine Protein Negative (Neg-Trace) mg/dL Urine Glucose (UA) Negative (Negative) mg/dL Urine Ketones Negative (Negative) mg/dL Urine Blood Negative (Negative) Urine Nitrite Negative (Negative) Ur Leukocyte Esterase Moderate (2+) H (Negative) Urine RBC 0-2 (0-2) /HPF Urine WBC 21-50 H (0-5) /HPF Ur Squamous Epith Cells 0-2 (0-2) /HPF Urine Bacteria 4+ (None Seen) Hyaline Casts 0-2 (0-2) /LPF 07/20/25 Range/Units 10:18 WBC (4.8-10.8) X10*3/uL RBC (4.20-5.50) X10*6/uL Hgb (12.0-16.0) g/dl Hct (37.0-47.0) % MCV (80.0-98.0) fL MCH (27.0-33.0) pg MCHC (31.0-35.0) g/dl RDW (11.0-16.0) % Plt Count (160-400) X10*3/uL MPV (9.4-12.3) fL Immature Gran % (Auto) (0.0-0.4) % Neut % (Auto) (45-73) % Lymph % (Auto) (20-40) % [place] % (Auto) (2-11) % Eos % (Auto) (0-4) % Baso % (Auto) (0-2) % Lymph # (Auto) (1.2-4.9) X10*3/uL [place] # (Auto) (0.1-1.2) X10*3/uL Eos # (Auto) (0.0-0.4) X10*3/uL Baso # (Auto) (0.0-0.2) X10*3/uL Abs Immat Gran (auto) (0.00-0.03) X10*3/uL Absolute Neuts (auto) (2.0-8.3) x10*3/uL Absolute Nucleated RBC (0.0-0.012) X10*3/uL Nucleated RBC % (auto) (0.0-0.2) /100WBC Sodium (135-145) mmol/L Potassium (3.3-5.1) mmol/L Chloride (96-108) mmol/L Carbon Dioxide (22-29) mmol/L Anion Gap (12-20) BUN (9-16) mg/dL Creatinine (0.5-1.4) mg/dL Estim Creat Clear Calc Estimated GFR POC Glucose 118 H (60-115) mg/dL Random Glucose (60-115) mg/dL Calcium (8.4-10.2) mg/dL Total Bilirubin (0.0-1.0) mg/dL AST (5-31) U/L ALT (0-31) U/L Alkaline Phosphatase (39-117) U/L Total Creatine Kinase (26-140) U/L B-Natriuretic Peptide (<100) pg/mL Total Protein (6.5-8.0) g/dL Albumin (3.5-5.0) g/dL Urine Color Urine Appearance Urine pH (5.0-9.0) Ur Specific [place] (1.005-1.025) Urine Protein (Neg-Trace) mg/dL Urine Glucose (UA) (Negative) mg/dL Urine Ketones (Negative) mg/dL Urine Blood (Negative) Urine Nitrite (Negative) Ur Leukocyte Esterase (Negative) Urine RBC (0-2) /HPF Urine WBC (0-5) /HPF Ur Squamous Epith Cells (0-2) /HPF Urine Bacteria (None Seen) Hyaline Casts (0-2) /LPF Radiology Impression Discussion of test interpretation with radiology: I have reviewed the radiologist's reading. Radiologist Impression: 5 view, pelvis and bilateral hips Comparison: None provided Findings: The bony pelvis is intact. There are moderate degenerative changes at both hips. No fracture or malalignment. Impression: Moderate degenerative change at both hips. No fracture or malalignment. Bilateral lower extremity duplex venous Doppler Comparison: None Technique: Grayscale/Color/Duplex Doppler sonographic evaluation of the deep venous system within both lower extremities. Findings: Right lower extremity Common femoral vein: Patent CFV/GSV junction: Patent Femoral vein: Patent Popliteal vein: Patent Infrapopliteal veins: Patent where seen Soft tissue: No focal abnormality Left lower extremity Common femoral vein: Patent CFV/GSV junction: Patent Femoral vein: Patent Popliteal vein: Patent Infrapopliteal veins: Patent where seen Soft tissues: Popliteal cyst measuring 4.7 x 2.3 x 2.5 cm Impression: 1. Negative for bilateral lower extremity DVT 2. Left webb's cyst Independent Historian Clinical information obtained from an independent historian. History obtained from or confirmed by: Other (STOCK DRIER TENDER) External Record Review External record reviewed: Outpatient record Prescription Management I considered prescription management with: Antibiotic Discharge Plan Discharge Clinical Impression: Urinary tract infection Qualifiers: Urinary tract infection type: acute cystitis Hematuria presence: without hematuria Qualified Code(s): N30.00 - Acute cystitis without hematuria Hip osteoarthritis Qualifiers: Osteoarthritis type: unspecified Laterality: bilateral Qualified Code(s): M16.0 - Bilateral primary osteoarthritis of hip Patient Disposition: Home, Self-Care Instructions: Osteoarthritis (ED), Urinary Tract Infection in Older Adults (ED) Additional Instructions: You were found to have urinary tract infection while in the emergency department today, which may be attributing to your pain. A prescription for antibiotics has been sent to your pharmacy, please complete the entire course do not skip any doses or stop taking early even if you begin to feel better. You were also found to have arthritis in both of your hips. There was no evidence of blood clots in your legs. You may talk further with your primary care doctor about medication dosage changes/adjustments, and/or a course of physical therapy. Regarding the ongoing itching to your lower legs, I have additionally sent a prescription for a steroid cream that can be applied to the skin. Prescriptions: New cefuroxime axetil 250 mg tablet 250 mg PO BID Qty: 14 0RF triamcinolone acetonide 0.025 % ointment 1 appl topical BID Qty: 15 0RF No Action gabapentin 100 mg capsule 100 mg PO TID Qty: 90 0RF Referrals: Physician,Unknown J [Primary Care Provider, Medical] Print Language: Grenadian
--- NOTE | 2025-04-23 10:18 | PC.NURSE ---
Tech called charge nurse into room d/t primary RN being busy, pt reporting new onset dizziness, able to speak in full sentences. Pt POC checked 118, pt denies taking any medications this AM. Pt placed on monitors, vitals remain stable at this time, Primary nurse updated as well as provider
[2025-04-23 10:20] VITALS: BP 149/64; PULSE 73; RESP 15; TEMP 36.6; O2SAT 98
[2025-04-23 10:24] LABS: Glucose, Whole Blood 118 mg/dL (60-115)
[2025-04-23 11:59] VITALS: BP 180/80; PULSE 74; RESP 16; O2SAT 98
[2025-04-23 13:27] VITALS: BP 180/80; PULSE 74; RESP 16; TEMP 36.7; O2SAT 98
== END 2025-04-23 13:33 | disposition home or self-care (01) ==
PROVIDERS: Nurse Practitioner Family; Emergency Provider Emergency Medicine
DX: N30.00 Acute cystitis without hematuria (principal); M16.0 Bilateral primary osteoarthritis of hip; M79.10 Myalgia, unspecified site; R60.0 Localized edema; M25.552 Pain in left hip; L53.8 Other specified erythematous conditions; R21 Rash and other nonspecific skin eruption; M25.551 Pain in right hip; M54.50 Low back pain, unspecified; L30.8 Other specified dermatitis; Z79.01 Long term (current) use of anticoagulants; Z79.899 Other long term (current) drug therapy; Z86.718 Personal history of other venous thrombosis and embolism
CPT/HCPCS: 36415; 73521; 80053; 81001; 82550; 82947; 83880; 85025; 87086; 87088; 87186; 93970; 99284

== ENCOUNTER → 2025-04-23 09:00 | Outpatient (BNV) | payer OTHER, SELFPAY | PROVIDERS: Emergency Provider Emergency Medicine; Visit Provider Radiology Vascular & Interventional Radiology | DX: R22.43 Localized swelling, mass and lump, lower limb, bilateral (principal); M16.0 Bilateral primary osteoarthritis of hip | CPT/HCPCS: 73521; 93970 ==